=== PATIENT | female | born 1945 | race Caucasian/White ===

== ENCOUNTER → 2024-01-25 08:42 | Outpatient (REF) | payer MEDICARE, OTHER, SELFPAY ==
[2024-01-25 10:07] LABS: % Basophils 1.1 % (0-2); % Eosinophils 5.6 % (0-6); % Immature Granulocytes 0.5 % (0-0.5); % Lymphocytes 20.8 % (20.5-51.1); % Monocytes 7.9 % (1.7-9.3); % Neutrophils 64.1 % (42.2-75.2); Absolute Basophils 0.1 10^3/uL (0-0.2); Absolute Eosinophils 0.3 10^3/uL (0-0.7); Absolute Lymphocytes 1.2 10^3/uL (1.2-3.4); Absolute Monocytes 0.5 10^3/uL (0.1-0.6); Absolute Neutrophils 3.6 10^3/uL (1.4-6.5); Hematocrit 34.7 % (37.0-47.0); Hemoglobin 11.4 g/dL (12.0-16.0); Mean Corp Hgb Conc. 32.9 g/dL (33.0-37.0); Mean Corpuscular Hgb 34.1 pg (27.0-31.0); Mean Corpuscular Volume 103.9 fL (81.0-99.0); Nucleated Red Blood Cells % 0 %; Platelet Count 212 10^3/uL (130-400); Red Blood Cell Count 3.34 10^6/uL (4.20-5.40); White Blood Cell Count 5.7 10^3/uL (4.8-10.8)
[2024-01-25 11:03] LABS: Blood Urea Nitrogen 75 mg/dl (7-17); Calcium 9.3 mg/dl (8.4-10.2); Carbon Dioxide 22 mmol/L (22-30); Chloride 109 mmol/L (98-107); Glucose 77 mg/dl (70-99); Iron 116 ug/dl (37-170); Potassium 4.3 mmol/L (3.5-5.1); Sodium 138 mmol/L (135-145); eGFR 13.44
[2024-01-25 11:12] LABS: Percent Saturation 35 % (20-50); Total Iron Binding Capacity 324 ug/dl (265-497)
[2024-01-25 11:26] LABS: Ferritin 55.8 ng/ml (11.1-264.0)
== END ==
LOC: REG 08:42
PROVIDERS: ATTENDING PHYSICIAN Specialist; FAMILY PHYSICIAN Family Medicine
DX: N18.4 Chronic kidney disease, stage 4 (severe) (principal); D63.8 Anemia in other chronic diseases classified elsewhere; N25.81 Secondary hyperparathyroidism of renal origin; M10.9 Gout, unspecified
CPT/HCPCS: 36415; 80048; 82728; 83540; 83550; 85025

== ENCOUNTER → 2024-04-23 10:35 | Outpatient (REF) | payer MEDICARE, OTHER, SELFPAY ==
[2024-04-23 12:00] LABS: Hemoglobin 10.9 g/dL (12.0-16.0)
[2024-04-23 13:42] LABS: ALT (SGPT) 17 U/L (0-35); AST (SGOT) 32 U/L (14-36); Alkaline Phosphatase 57 U/L (38-126); Blood Urea Nitrogen 65 mg/dl (7-17); Calcium 9.5 mg/dl (8.4-10.2); Carbon Dioxide 19 mmol/L (22-30); Chloride 109 mmol/L (98-107); Direct Bilirubin 0.2 mg/dl (0.0-0.4); Glucose 73 mg/dl (70-99); Iron 93 ug/dl (37-170); Phosphorus 4.1 mg/dl (2.5-4.5); Potassium 4.6 mmol/L (3.5-5.1); Sodium 138 mmol/L (135-145); Total Bilirubin 0.4 mg/dl (0.2-1.3); Total Protein 6.3 g/dl (6.3-8.2); eGFR 12.55
[2024-04-23 13:51] LABS: Percent Saturation 31 % (20-50); Total Iron Binding Capacity 296 ug/dl (265-497)
[2024-04-23 14:29] LABS: Uric Acid 4.8 mg/dl (2.5-6.2)
[2024-04-23 15:16] LABS: TSH Reflex To Free T4 0.56 uIU/ml (0.47-4.68)
[2024-04-23 15:20] LABS: Ferritin 45.4 ng/ml (11.1-264.0)
[2024-04-24 10:54] LABS: Intact PTH 55.1 pg/ml (13.6-85.8)
== END ==
LOC: REG 10:35
PROVIDERS: ATTENDING PHYSICIAN Specialist; FAMILY PHYSICIAN Family Medicine; REFERRING PHYSICIAN Internal Medicine Rheumatology
DX: E03.9 Hypothyroidism, unspecified (principal); N18.4 Chronic kidney disease, stage 4 (severe); D63.8 Anemia in other chronic diseases classified elsewhere; N25.81 Secondary hyperparathyroidism of renal origin; M10.9 Gout, unspecified
CPT/HCPCS: 36415; 80048; 80076; 82728; 83540; 83550; 83970; 84100; 84443; 84550; 85018

== ENCOUNTER → 2024-07-15 10:04 | Day surgery (SDC) | payer MEDICARE, OTHER, SELFPAY | LOC: SDSPAT 10:04 | PROVIDERS: ATTENDING PHYSICIAN Surgery; FAMILY PHYSICIAN Family Medicine; OTHER PHYSICIAN Specialist | DX: Z01.810 Encounter for preprocedural cardiovascular examination (principal) | CPT/HCPCS: 93005; 36415 ==

== ENCOUNTER 2024-07-29 06:19 | Day surgery (SDC) | payer MEDICARE, OTHER, SELFPAY ==
[2024-07-15 10:43] VITALS: BMI 18.2
[2024-07-29] VITALS (14 sets, daily range): BP systolic 104–136; BP diastolic 47–67; BMI 18.2
[2024-07-29] MEDS: TYLENOL 1000 MG PO ×2 (11:51→17:48)
[2024-07-29] MEDS: IC GREEN 2.5 MG IV (12:10)
--- NOTE | 2024-07-29 14:35 | OR.RPT ---
Operative Report
Operative Report
Primary Surgeon: Gayla
Assisting: Clifton TOMLIN
Pre-op Diagnosis: Biliary pancreatitis
Post-op Diagnosis: Chronic calculous cholecystitis
Procedure Performed: Robot assisted laparoscopic cholecystectomy
Anesthesia Type: GETA
Specimen / Cultures: Gallbladder
Estimated Blood Loss: 5cc
Complications: None immediate
Operative Findings: Softly distended gallbladder with dense omental attachments
Date of Surgery:� 07/29/24
Indications: This 79F developed biliary pancreatitis. Work-up showed gallstones, unremarkable liver enzymes and no ductal dilation. MRI did not show any ongoing choledocholithiasis. Laparoscopic cholecystectomy with robotic assist was elected.
Description of procedure: The patient was placed on the operating table in the supine position. General anesthesia was induced. A time-out was completed verifying correct patient, procedure, site, positioning, and special equipment prior to
beginning this procedure. An orogastric tube was placed. The abdomen was prepped and draped in the usual sterile fashion. A stab incision was made in left upper quadrant and the Veress needle was inserted. Proper position was confirmed by aspiration
and saline meniscus test. The abdomen was insufflated with carbon dioxide to a pressure of 12mmHg. The patient tolerated insufflation well.
A 8mm trocar was then inserted above the umbilicus. The laparoscope was inserted and the abdomen inspected. No injuries from initial trocar placement or Veress needle insertion were noted. Additional 8mm trocars were then inserted in the following
locations: two in the right lower quadrant and to the left of the umbilicus and just above. The abdomen was inspected and no abnormalities were found. The table was placed in the reverse Trendelenburg position with the right side up. The dome of the
gallbladder was grasped with an atraumatic grasper and retracted over the dome of the liver. Dense omental adhesions were carefully teased down with gently blunt sweeps and judicious hook cautery. The infundibulum was then grasped with an atraumatic
grasper and retracted toward the right lower quadrant. This maneuver exposed Calot�s triangle. The peritoneum overlying the gallbladder infundibulum was then incised and the cystic duct and cystic artery identified and circumferentially dissected so
that a clear view of the liver was achieved through a window between the cystic duct an cystic artery. At this time, the only two structures going into the gallbladder were the cystic artery and cystic duct. The common dict was identified with ICG
and protected.
The cystic duct was then doubly clipped and divided. The cystic artery was controlled with bipolar and divided. The gallbladder was then dissected from its peritoneal attachments by electrocautery. The gallbladder was removed using an endoscopic
retrieval bag placed through the umbilical port. The gallbladder was passed off the table as a specimen. The gallbladder fossa was closely inspected. There was no evidence of bleeding from the gallbladder fossa or cystic artery or leakage of the
bile from the cystic duct stump. The umbilical trocar site was closed at the fascial level with 2-0 PDS. Secondary trocars were removed under direct vision and noted to be hemostatic. The abdomen was allowed to collapse. The skin was closed with
subcuticular sutures of 4-0 monocryl and topical skin adhesive. The orogastric tube was removed.
The patient tolerated the procedure well and was taken to the postanesthesia care unit in stable condition.
--- NOTE | 2024-07-29 18:00 | PTCARENOTE ---
Patient is s/p lap choly. Staying overnight under observation status.
Daughter handed this RN patient's living will and POLST. Per patient and patient's daughter, patient is a DNR. Clarified with Dr. Shukla patient's resuscitation status. Per Dr. Shukla, patient agreeable to surgery and observation status while being
a full code with plan for discharge in early AM.
Clarified as well with nursing home admissions director, Nadja. POLST and Living Will copied and placed in medical record.
[2024-07-29] MEDS: ULORIC 20 MG PO (18:31)
[2024-07-30] MEDS: TYLENOL 1000 MG PO (00:19)
[2024-07-30 03:02] VITALS: BP 125/56
[2024-07-30] MEDS: SYNTHROID 50 MCG PO (05:49)
[2024-07-30] MEDS: TYLENOL PO (05:52)
[2024-07-30 07:27] VITALS: BP 102/56
--- NOTE | 2024-07-30 07:33 | W.PN.GS2 ---
Today's Communication / Plan
-
DC
Assessment / Plan
-
79F POD1 s/p rCCY for CCC, she requested to stay for obs overnight out of abundance of caution
Uneventful night, OK for DC home
Subjective Data
-
Date of Service: July 30, 2024
AFVSS, ambulating, voiding, helga PO, pain controlled
Objective Data
-
Intake and Output
07/29/24 07/30/24 07/31/24
06:59 06:59 06:59
Intake Total 630 / 630
Balance 630 / 630
Intake:
Oral fluids 580 / 580
IV fluids (Total) 50 / 50
Normosal 50 / 50
Other:
Number of approximated MODERATE 2
amounts of urine
Vital Signs
Temp Pulse Resp BP Pulse Ox
97.9 F 73 16 102/56 93
07/30/24 07:27 07/30/24 07:27 07/30/24 07:27 07/30/24 07:27 07/30/24 07:27
Physical Exam
-
Gen: NAD
Abd: soft, approp ttp, incisions cdi
--- NOTE | 2024-07-30 07:34 | W.DS.TRANS ---
DC Summary - [employer]
-
Discharge Instructions:
Sleep Apnea Risk Low
Discharge Diagnosis/Procedures Chronic calculous cholecystitis
Diet No restrictions
Activity No strenuous activity
Bathing Restrictions OK to Shower
Wound Care Allow skin glue to flake off on its own
Instructions: Cholecystectomy (DC)
Stand-Alone Forms:
Changes to Home Medications: No
Discharge Medications:
DC Medications w/original date entered in [employer]
acetaminophen 500 mg tablet 1,000 mg PO Q6H PRN pain 07/16/24
colchicine 0.6 mg tablet 0.6 mg PO PRN PRN gout 07/16/24
febuxostat 40 mg tablet 20 mg PO SUMOWEFRSA 07/16/24
levothyroxine 50 mcg tablet (Synthroid) 50 mcg PO SUMOTUTHFR 07/16/24
levothyroxine 50 mcg tablet (Synthroid) 75 mcg PO WESA 07/16/24
Home Medication Changes
Pending Results: No
--- NOTE | 2024-07-30 09:59 | CM ---
Pt discharged prior to CM meeting with her
Reviewed with nursing- no dc needs noted
== END 2024-07-30 09:52 | disposition home or self-care (01) ==
LOC: SDS 06:19
PROVIDERS: ATTENDING PHYSICIAN Surgery
DX: K80.10 Calculus of gallbladder with chronic cholecystitis without obstruction (principal); K85.90 Acute pancreatitis without necrosis or infection, unspecified
CPT/HCPCS: 47562; 88304

== ENCOUNTER → 2024-09-13 11:29 | Outpatient (REF) | payer MEDICARE, OTHER, SELFPAY ==
[2024-09-13 12:52] LABS: Hemoglobin 10.3 g/dL (12.0-16.0)
[2024-09-13 14:37] LABS: Blood Urea Nitrogen 54 mg/dl (7-17); Calcium 8.9 mg/dl (8.4-10.2); Carbon Dioxide 23 mmol/L (22-30); Chloride 106 mmol/L (98-107); Glucose 77 mg/dl (70-99); Iron 84 ug/dl (37-170); Phosphorus 4.3 mg/dl (2.5-4.5); Potassium 4.8 mmol/L (3.5-5.1); Sodium 138 mmol/L (135-145); eGFR 12.07
[2024-09-13 14:47] LABS: Percent Saturation 32 % (20-50); Total Iron Binding Capacity 262 ug/dl (265-497)
[2024-09-13 15:14] LABS: Ferritin 81.2 ng/ml (11.1-264.0)
[2024-09-14 09:32] LABS: Intact PTH 68.9 pg/ml (13.6-85.8)
== END ==
LOC: REG 11:29
PROVIDERS: ATTENDING PHYSICIAN Specialist; FAMILY PHYSICIAN Family Medicine; REFERRING PHYSICIAN Internal Medicine Rheumatology
DX: N18.4 Chronic kidney disease, stage 4 (severe) (principal); E03.9 Hypothyroidism, unspecified; E63.8 Other specified nutritional deficiencies
CPT/HCPCS: 36415; 80048; 82728; 83540; 83550; 83970; 84100; 85018

== ENCOUNTER → 2025-01-13 10:13 | Outpatient (REF) | payer MEDICARE, OTHER, SELFPAY ==
[2025-01-13 10:53] LABS: Hemoglobin 10.8 g/dL (12.0-16.0)
[2025-01-13 12:32] LABS: ALT (SGPT) 20 U/L (0-35); AST (SGOT) 27 U/L (14-36); Albumin 3.9 g/dl (3.5-5.0); Alkaline Phosphatase 57 U/L (38-126); Blood Urea Nitrogen 62 mg/dl (7-17); Calcium 9.3 mg/dl (8.4-10.2); Carbon Dioxide 21 mmol/L (22-30); Chloride 111 mmol/L (98-107); Direct Bilirubin 0.2 mg/dl (0.0-0.4); Glucose 79 mg/dl (70-99); Iron 89 ug/dl (37-170); Phosphorus 4.8 mg/dl (2.5-4.5); Potassium 5.3 mmol/L (3.5-5.1); Sodium 140 mmol/L (135-145); Total Bilirubin 0.5 mg/dl (0.2-1.3); Total Protein 6.5 g/dl (6.3-8.2); Uric Acid 4.5 mg/dl (2.5-6.2); eGFR 10.99
[2025-01-13 12:42] LABS: Percent Saturation 30 % (20-50); Total Iron Binding Capacity 292 ug/dl (265-497)
[2025-01-13 12:56] LABS: Ferritin 17.3 ng/ml (11.1-264.0)
[2025-01-15 12:30] LABS: Intact PTH 5.4 pg/ml (13.6-85.8)
== END ==
LOC: REG 10:13
PROVIDERS: ATTENDING PHYSICIAN Specialist; FAMILY PHYSICIAN Family Medicine; OTHER PHYSICIAN Internal Medicine Rheumatology
DX: M10.9 Gout, unspecified (principal); Z79.899 Other long term (current) drug therapy; N18.4 Chronic kidney disease, stage 4 (severe); E03.9 Hypothyroidism, unspecified; D63.8 Anemia in other chronic diseases classified elsewhere
CPT/HCPCS: 36415; 80053; 82248; 82728; 83540; 83550; 83970; 84100; 84550; 85018

== ENCOUNTER → 2025-02-17 09:14 | Outpatient (REF) | payer MEDICARE, OTHER, SELFPAY ==
[2025-02-17 10:57] LABS: TSH < 0.02 uIU/ml (0.47-4.68)
[2025-02-17 11:07] LABS: Blood Urea Nitrogen 67 mg/dl (7-17); Calcium 9.6 mg/dl (8.4-10.2); Carbon Dioxide 18 mmol/L (22-30); Chloride 113 mmol/L (98-107); Glucose 94 mg/dl (70-99); Potassium 4.9 mmol/L (3.5-5.1); Sodium 139 mmol/L (135-145); eGFR 11.33
[2025-02-19 19:55] LABS: Erythropoietin (EPO) 10 mU/mL (4-27)
== END ==
LOC: REG 09:14
PROVIDERS: ATTENDING PHYSICIAN Specialist; FAMILY PHYSICIAN Family Medicine
DX: E87.20 Acidosis, unspecified (principal); D63.8 Anemia in other chronic diseases classified elsewhere; E83.39 Other disorders of phosphorus metabolism; N18.4 Chronic kidney disease, stage 4 (severe); E03.9 Hypothyroidism, unspecified
CPT/HCPCS: 36415; 80048; 82668; 84100; 84439; 84443

== ENCOUNTER 2025-02-19 11:39 | Outpatient (RCR) | payer MEDICARE, OTHER, SELFPAY | END 2025-02-19 23:59 | disposition home or self-care (01) | LOC: RPT 11:39 | PROVIDERS: ATTENDING PHYSICIAN Family Medicine | DX: R42 Dizziness and giddiness (principal); Z73.6 Limitation of activities due to disability; Z87.898 Personal history of other specified conditions | CPT/HCPCS: 97112; 97162 ==

== ENCOUNTER → 2025-03-04 11:20 | Outpatient (REF) | payer MEDICARE, OTHER, SELFPAY ==
[2025-03-04 12:19] LABS: Blood Urea Nitrogen 54 mg/dl (7-17); Calcium 8.9 mg/dl (8.4-10.2); Carbon Dioxide 24 mmol/L (22-30); Chloride 106 mmol/L (98-107); Glucose 90 mg/dl (70-99); Potassium 4.8 mmol/L (3.5-5.1); Sodium 138 mmol/L (135-145); eGFR 10.99
== END ==
LOC: REG 11:20
PROVIDERS: ATTENDING PHYSICIAN Specialist; FAMILY PHYSICIAN Family Medicine
DX: N18.4 Chronic kidney disease, stage 4 (severe) (principal); D63.8 Anemia in other chronic diseases classified elsewhere; E03.9 Hypothyroidism, unspecified
CPT/HCPCS: 36415; 80048

== ENCOUNTER → 2025-04-21 08:58 | Outpatient (REF) | payer MEDICARE, OTHER, SELFPAY ==
[2025-04-21 09:41] LABS: Hematocrit 32.6 % (37.0-47.0); Hemoglobin 10.6 g/dL (12.0-16.0); Mean Corp Hgb Conc. 32.5 g/dL (33.0-37.0); Mean Corpuscular Volume 105.2 fL (81.0-99.0); Nucleated Red Blood Cells % 0 %; Platelet Count 164 10^3/uL (130-400); Red Cell Dist. Width 11.9 % (11.5-14.5)
[2025-04-21 10:32] LABS: ALT (SGPT) 19 U/L (0-35); AST (SGOT) 29 U/L (14-36); Albumin 4.2 g/dl (3.5-5.0); Alkaline Phosphatase 52 U/L (38-126); Blood Urea Nitrogen 70 mg/dl (7-17); Calcium 9.0 mg/dl (8.4-10.2); Carbon Dioxide 21 mmol/L (22-30); Chloride 109 mmol/L (98-107); Glucose 96 mg/dl (70-99); HDL Cholesterol 61 mg/dl; LDL Cholesterol, Calculated 72 mg/dl; Potassium 5.3 mmol/L (3.5-5.1); Sodium 139 mmol/L (135-145); Total Protein 6.6 g/dl (6.3-8.2); Very Low Density Lipoprotein 14 mg/dl (0-30); eGFR 12.48
== END ==
LOC: REG 08:58
PROVIDERS: ATTENDING PHYSICIAN Physician Assistant; FAMILY PHYSICIAN Family Medicine
DX: R79.89 Other specified abnormal findings of blood chemistry (principal); N18.4 Chronic kidney disease, stage 4 (severe); E03.9 Hypothyroidism, unspecified
CPT/HCPCS: 36415; 80053; 80061; 84439; 84443; 85025

== ENCOUNTER → 2025-05-20 08:58 | Outpatient (REF) | payer MEDICARE, OTHER, SELFPAY ==
[2025-05-20 09:32] LABS: Hemoglobin 10.5 g/dL (12.0-16.0)
[2025-05-20 10:03] LABS: Blood Urea Nitrogen 66 mg/dl (7-17); Calcium 9.1 mg/dl (8.4-10.2); Carbon Dioxide 27 mmol/L (22-30); Chloride 106 mmol/L (98-107); Glucose 88 mg/dl (70-99); Iron 85 ug/dl (37-170); Potassium 5.0 mmol/L (3.5-5.1); Sodium 139 mmol/L (135-145); eGFR 11.33
[2025-05-20 10:12] LABS: Total Iron Binding Capacity 291 ug/dl (265-497)
[2025-05-20 10:39] LABS: Ferritin 34.9 ng/ml (11.1-264.0)
== END ==
LOC: REG 08:58
PROVIDERS: ATTENDING PHYSICIAN Specialist; FAMILY PHYSICIAN Family Medicine; REFERRING PHYSICIAN Internal Medicine Rheumatology
DX: N18.4 Chronic kidney disease, stage 4 (severe) (principal); E03.9 Hypothyroidism, unspecified; D63.8 Anemia in other chronic diseases classified elsewhere
CPT/HCPCS: 36415; 80048; 82728; 83540; 83550; 83970; 84100; 85018

== ENCOUNTER → 2025-08-12 09:53 | Outpatient (REF) | payer MEDICARE, OTHER, SELFPAY ==
[2025-08-12 11:21] LABS: Hemoglobin 11.6 g/dL (12.0-16.0)
[2025-08-12 13:31] LABS: ALT (SGPT) 22 U/L (0-35); AST (SGOT) 31 U/L (14-36); Albumin 4.2 g/dl (3.5-5.0); Alkaline Phosphatase 70 U/L (38-126); Blood Urea Nitrogen 52 mg/dl (7-17); Calcium 9.3 mg/dl (8.4-10.2); Carbon Dioxide 26 mmol/L (22-30); Chloride 103 mmol/L (98-107); Glucose 79 mg/dl (70-99); Iron 79 ug/dl (37-170); Potassium 5.2 mmol/L (3.5-5.1); Sodium 137 mmol/L (135-145); Total Protein 6.8 g/dl (6.3-8.2); Uric Acid 3.6 mg/dl (2.5-6.2); eGFR 10.30
[2025-08-12 13:41] LABS: Total Iron Binding Capacity 311 ug/dl (265-497)
[2025-08-12 13:44] LABS: Ferritin 6.1 ng/ml (11.1-264.0)
== END ==
LOC: REG 09:53
PROVIDERS: ATTENDING PHYSICIAN Specialist; FAMILY PHYSICIAN Family Medicine; REFERRING PHYSICIAN Internal Medicine Rheumatology
DX: N18.4 Chronic kidney disease, stage 4 (severe) (principal); E03.9 Hypothyroidism, unspecified; D63.8 Anemia in other chronic diseases classified elsewhere; M10.9 Gout, unspecified; Z79.899 Other long term (current) drug therapy; R63.4 Abnormal weight loss; R79.89 Other specified abnormal findings of blood chemistry
CPT/HCPCS: 36415; 80053; 82248; 82728; 83540; 83550; 83970; 84100; 84439; 84443; 84550; 85018